=== PATIENT | male | born 1950 | race Caucasian/White ===

== ENCOUNTER 2017-08-08 17:11 | Emergency (ER) | payer MEDICARE ==
[2017-08-08] MEDS ORDERED: ACETAMINOPHEN 325 MG TABLET PO ONE (17:19)
[2017-08-08] MEDS: NORMAL SALINE 1000 ML 1,000 ML IV PRN ×2 (17:48→19:04)
--- NOTE | 2017-08-08 17:54 | ER Document Report ---
ED General - General Chief Complaint: Insect Bite Stated Complaint: POSSIBLE BUG BITES Time Seen by Provider: 08/08/17 17:17 Notes: The patient is a 66-year-old male who presents by EMS after he was found outside on top of an ant mound. The patient says he usually uses an electric wheelchair when he goes outside, but he thinks he fell out of it and landed on the ant mound. He does not know how long he was outside, but he was last seen by his family member at 8 AM. He was given 50 mg of Benadryl by EMS and the ants were hosed off prior to arrival. He was also found to be febrile 101.2 by EMS. Patient also having left upper arm pain where he was laying on it all day. Patient denies difficulty swallowing, chest pain, shortness of breath, headache, focal weakness, numbness, tingling, difficulty swallowing, nausea, vomiting, abdominal pain or back pain. - Related Data Allergies/Adverse Reactions: ampicillin Allergy (Verified 08/08/17 17:55) Past Medical History - General Information source: Patient - Social History Smoking Status: Unknown if Ever Smoked Family History: Reviewed & Not Pertinent Review of Systems - Review of Systems Notes: REVIEW OF SYSTEMS: CONSTITUTIONAL: -fevers, -chills EENT: -eye pain, -difficulty swallowing, -nasal congestion CARDIOVASCULAR: -chest pain, -syncope. RESPIRATORY: -cough, -SOB GASTROINTESTINAL: -abdominal pain, -nausea, -vomiting, -diarrhea GENITOURINARY: -dysuria, -hematuria MUSCULOSKELETAL: +left upper arm pain, -back pain, -neck pain SKIN: +pruritic rash HEMATOLOGIC: -easy bruising or bleeding. LYMPHATIC: -swollen, enlarged glands. NEUROLOGICAL: -altered mental status or loss of consciousness, -headache, - neurologic symptoms PSYCHIATRIC: -anxiety, +depression. ALL OTHER SYSTEMS REVIEWED AND NEGATIVE. Physical Exam - Vital signs Vitals: Temp Resp Pulse Ox 101.0 F H 11 L 96 08/08/17 17:33 08/08/17 17:33 08/08/17 17:33 - Notes Notes: PHYSICAL EXAMINATION: GENERAL: Well-appearing, well-nourished and in no acute distress. HEAD: Atraumatic, normocephalic. EYES: Pupils equal round and reactive to light, extraocular movements intact, sclera anicteric, conjunctiva are normal. ENT: nares patent, oropharynx clear without exudates. Moist mucous membranes. NECK: Normal range of motion, supple without lymphadenopathy LUNGS: Breath sounds clear to auscultation bilaterally and equal. No wheezes rales or rhonchi. HEART: Regular rhythm, tachycardia ABDOMEN: Soft, nontender, normoactive bowel sounds. No guarding, no rebound. No masses appreciated. EXTREMITIES: Tenderness over left upper arm. Normal range of motion, no pitting or edema. No cyanosis. NEUROLOGICAL: Cranial nerves grossly intact. Normal speech, normal gait. Normal sensory and motor exams. PSYCH: Tearful, depressed mood SKIN: Diffuse pruritic urticarial lesions with red ants in his axilla. Course - Re-evaluation Re-evalutation: Patient has no signs of anaphylaxis at this time. He is mildly tachycardic and febrile, but no signs of infection. His mildly elevated temperature is most likely related to his prolonged sun exposure over the past 8 hours. Rest of blood work is unremarkable. 08/08/17 18:00 Daughter and arrived to the ER and provided additional information. Patient is seeing [facility] for an unknown disorder that is causing him decreased ability to walk. He has had extensive workup, but he continues to lose mobility over the past 15 months. Patient is increasingly depressed and said he would rather than live without the ability to walk. The family members are tearful and said that the patient is having increased sadness and hopelessness. A few months ago he was on BuSpar, but it caused anaphylactic reaction, so he is not on any antidepressants at this time. The daughter and think that this was a suicide attempt because his wheelchair was very far from the ant mound. Patient does agree that he is having increased depression about his illness and agrees to stay to speak to mental health in the morning. - Vital Signs Vital signs: Temp Pulse Resp BP Pulse Ox 98.3 F 20 149/77 H 99 08/08/17 19:08 08/08/17 20:01 08/08/17 20:01 08/08/17 20:01 - Laboratory Result Diagrams: 08/08/17 17:47 08/08/17 17:47 Laboratory results interpreted by me: 08/08/17 08/08/17 08/08/17 17:47 17:47 17:47 RDW 14.2 H Seg Neutrophils % 82.2 H Lymphocytes % 9.8 L Absolute Neutrophils 8.4 H Glucose 262 H Salicylates < 1.0 L Acetaminophen < 10 L - Diagnostic Test Radiology reviewed: Image reviewed, Reports reviewed Radiology results interpreted by me: Left humerus x-ray: NAD CT Head: NAD CXR: Cardiomegaly. There is blunting of the left costophrenic angle which could represent pleural reaction or a small left pleural effusion. Other findings as noted above. Discharge - Discharge Clinical Impression: [place] Fire ant bite Qualifiers: Encounter type: initial encounter Injury intent: intentional self-harm Qualified Code(s): T63.422A - Toxic effect of venom of ants, intentional self- harm, initial encounter Depression Qualifiers: Depression Type: unspecified Qualified Code(s): F32.9 - Major depressive disorder, single episode, unspecified Contusion of left upper arm Qualifiers: Encounter type: initial encounter Qualified Code(s): S40.022A - Contusion of left upper arm, initial encounter Condition: Stable Additional Instructions: ACUTE ALLERGIC REACTION: Your symptoms are due to an allergic reaction. Allergy can cause hives, swelling of the hands, feet, and face, hoarseness, and difficulty swallowing or breathing. It may be due to exposure to medication, animal dander, foods, infection, or insect bites. Medication is a common cause, even when prior use of this same medication caused no problems. Acute treatment may include adrenalin and antihistamines. Usually, the specific allergic agent can't be identified unless repeated episodes occur. Home treatment includes the following: (1) Stop any suspicious medications. This will be discussed with you. (2) Oral antihistamines for the next four to five days. Example, diphenhydramine (Benadryl) every four hours. (3) You may also use cimetidine (Tagamet), ranitidine (Zantac), or famotidine ( Pepcid) every four hours if diphenhydramine is not controlling itching and hives. (4) Avoid aspirin until the hives completely disappear. (5) Avoid hot baths or showers until the hives are completely gone. Call the doctor if faintness, difficulty swallowing, tightness in the chest , or wheezing occurs. ANTIHISTAMINES: An antihistamine has been given and/or prescribed to control your symptoms. Antihistamines are used for many reasons, including itching, watering eyes, runny nose, allergic swelling, hives, and insect stings. Antihistamines may cause drowsiness, especially with the first dose. Do not operate machinery or drive while under the effects of the medication. Other common side effects include dry mouth and eyes. In older persons, antihistamines can occasionally cause urinary retention, constipation, and trouble focusing the eyes. Do not combine the medication with alcohol, or with any other medication without talking to your doctor. USE OF DIPHENHYDRAMINE: The use of diphenhydramine (Benadryl) has been recommended to control allergic symptoms. The 25 mg strength is available over- the-counter, as well as the elixir. This antihistamine is used for many symptoms. It's useful for itching, watering eyes and nose, allergic swelling, hives, and insect stings. The medication can be repeated four times daily. Age Elixir (12.5 mg/tsp) 25 mg pill 2-3 yr 1/2 tsp 4-8 yr 1 tsp 9-14 yr 2 tsp one tab adult 1-2 tabs Antihistamines may cause drowsiness, especially with the first dose. Do not operate machinery or drive while under the effects of the medication. Do not combine the medication with alcohol, or with any other medication without talking to your doctor. FOLLOW-UP CARE: If you have been referred to a physician for follow-up care, call the physician s office for an appointment as you were instructed or within the next two days. If you experience worsening or a significant change in your symptoms, notify the physician immediately or return to the Emergency Department at any time for re-evaluation. Contusion Your injury has resulted in a contusion -- a crushing of the deep tissues. No injury to important structures was detected during the physician's exam. Contusions vary in the amount of pain they cause, and in the length of time required for healing. Typically, the area will become bruised, and will remain painful to touch for two or three weeks. However, most patients are back to working and playing within a few days. After the initial period of rest and cold-packs, your symptoms (together with the doctor's recommendations) will determine how rapidly you can get back to full activity. Usually this means "do what feels okay, but don't do things that hurt." If re-examination was recommended, it's important to follow up as instructed. Call the doctor or return any time if pain increases, if swelling becomes severe, if you develop numbness or weakness in an injured extremity, or if any other alarming symptoms occur. Forms: Elevated Blood Pressure
[2017-08-08 17:58] LABS: ABSOLUTE BASOPHILS # (AUTO) 0.1 10^3/uL (0.0-0.2); ABSOLUTE EOSINOPHILS # (AUTO) 0.1 10^3/uL (0.0-0.6); ABSOLUTE MONOCYTES (AUTO) 0.7 10^3/uL (0.1-1.4); ABSOLUTE NEUT (AUTO) 8.4 10^3/uL (1.7-8.2); BASOPHILS % (AUTO) 0.8 % (0-2); EOSINOPHILS % (AUTO) 0.8 % (0-6); HEMATOCRIT 46.4 % (37.9-51.0); HEMOGLOBIN 15.9 g/dL (13.5-17.0); LYMPHOCYTES % (AUTO) 9.8 % (13-45); MEAN CORPUSCULAR HEMOGLOBIN 29.8 pg (27.0-33.4); MEAN CORPUSCULAR HGB CONC 34.3 g/dL (32.0-36.0); MEAN CORPUSCULAR VOLUME 87 fl (80-97); MONOCYTES % (AUTO) 6.4 % (3-13); PLATELET COUNT 212 10^3/uL (150-450); RED BLOOD COUNT 5.34 10^6/uL (4.35-5.55); RED CELL DISTRIBUTION WIDTH 14.2 % (11.5-14.0); SEGMENTED NEUTROPHILS % (AUTO) 82.2 % (42-78); TOTAL CELLS COUNTED % (AUTO) 100 %; WHITE BLOOD COUNT 10.2 10^3/uL (4.0-10.5)
[2017-08-08 18:11] LABS: ALANINE AMINOTRANSFERASE 48 U/L (21-72); ALBUMIN 3.7 g/dL (3.5-5.0); ALKALINE PHOSPHATASE 58 U/L (38-126); ANION GAP 16 (5-19); ASPARTATE AMINO TRANSFERASE 25 U/L (17-59); BILIRUBIN,DIRECT 0.4 mg/dL (0.0-0.4); BILIRUBIN,TOTAL 0.8 mg/dL (0.2-1.3); BLOOD UREA NITROGEN 15 mg/dL (7-20); CALCIUM 9.2 mg/dL (8.4-10.2); CARBON DIOXIDE 25 mmol/L (22-30); CHLORIDE 102 mmol/L (98-107); CREATINE KINASE 67 U/L (55-170); GLUCOSE 262 mg/dL (75-110); POTASSIUM 3.7 mmol/L (3.6-5.0); SODIUM 142.7 mmol/L (137-145); TOTAL PROTEIN 6.3 g/dL (6.3-8.2)
--- NOTE | 2017-08-08 18:46 | RADIOLOGY REPORT (SQ) ---
EXAM DESCRIPTION: HUMERUS LEFT COMPLETED DATE/TIME: 08/08/2017 6:20 pm REASON FOR STUDY: fall, left humerus pain COMPARISON: None. NUMBER OF VIEWS: Two views. TECHNIQUE: Two radiographic images were acquired of the left humerus to include elbow and shoulder i n at least one projection. LIMITATIONS: None. FINDINGS: MINERALIZATION: Normal. BONES: No acute fracture or dislocation. No worrisome bone lesions. SOFT TISSUES: No obvious swelling or foreign body. OTHER: No other significant finding. IMPRESSION: NEGATIVE STUDY OF THE LEFT HUMERUS. NO RADIOGRAPHIC EVIDENCE OF ACUTE INJURY. TECHNICAL DOCUMENTATION: JOB ID: [id number] [employer]- All Rights Reserved Reading location - IP/workstation name: [email or web address] [id number]
--- NOTE | 2017-08-08 18:49 | RADIOLOGY REPORT (SQ) ---
EXAM DESCRIPTION: CHEST SINGLE VIEW COMPLETED DATE/TIME: 08/08/2017 6:20 pm REASON FOR STUDY: cough COMPARISON: None. EXAM PARAMETERS: NUMBER OF VIEWS: One view. TECHNIQUE: Single frontal radiographic view of the chest acquired. RADIATION DOSE: NA LIMITATIONS: None. FINDINGS: LUNGS AND PLEURA: No acute consolidations are identified. There is blunting of the left c ostophrenic angle which could represent pleural reaction or small left pleural effusion MEDIASTINUM AND HILAR STRUCTURES: No masses. Contour normal. HEART AND VASCULAR STRUCTURES: Cardiac silhouette is enlarged BONES: No acute findings. HARDWARE: Patient is status post median sternotomy. OTHER: No other significant finding. IMPRESSION: Cardiomegaly. There is blunting of the left costophrenic angle which could represent pl eural reaction or a small left pleural effusion. Other findings as noted above TECHNICAL DOCUMENTATION: JOB ID: [id number] [employer]- All Rights Reserved Reading location - IP/workstation name: [email or web address]
--- NOTE | 2017-08-08 18:56 | RADIOLOGY REPORT (SQ) ---
EXAM DESCRIPTION: CT HEAD WITHOUT COMPLETED DATE/TIME: 08/08/2017 6:15 pm REASON FOR STUDY: fall, head injury COMPARISON: None. TECHNIQUE: Axial images acquired through the brain without intravenous contrast. Images reviewed wi th bone, brain and subdural windows. Images stored on PACS. All CT scanners at this facility use dose modulation, iterative reconstruction, and/or weight based d osing when appropriate to reduce radiation dose to as low as reasonably achievable (ALARA). [facility]: Dose Right [facility]: CareDose [facility]: Dose Right [facility]: Teradose 4D [facility]: [employer] RADIATION DOSE: mGy. LIMITATIONS: None. FINDINGS: VENTRICLES: Prominent. CEREBRUM: No masses. No hemorrhage. No midline shift. Areas of low density in the white matter mos t likely due to chronic micro-vascular ischemic change. No evidence for acute infarction. CEREBELLUM: No masses. No hemorrhage. No alteration of density. No evidence for acute infarction. EXTRAAXIAL SPACES: Mild age-related involutional change. No fluid collections. No masses. ORBITS AND GLOBE: No intra- or extraconal masses. Normal contour of globe without masses. CALVARIUM: No fracture. PARANASAL SINUSES: No fluid or mucosal thickening. SOFT TISSUES: No mass or hematoma. OTHER: No other significant finding. IMPRESSION: MILD CHRONIC CHANGES OF ATROPHY AND MICROVASCULAR ISCHEMIA. NO ACUTE PROCESS. EVIDENCE OF ACUTE STROKE: No TECHNICAL DOCUMENTATION: JOB ID: [id number] Quality ID # [id number]: Final reports with documentation of one or more dose reduction techniques (e.g., Au tomated exposure control, adjustment of the mA and/or kV according to patient size, use of iterative reconstruction technique) 2010 [employer]- All Rights Reserved Reading location - IP/workstation name: [email or web address]
[2017-08-08 19:22] LABS: VENOUS BLOOD BASE EXCESS 0.6 mmol/L; VENOUS BLOOD HCO3 27.5 mmol/L (20-32); VENOUS BLOOD PCO2 52.2 mmHg (35-63); VENOUS BLOOD PH 7.34 (7.30-7.42)
[2017-08-08] MEDS ORDERED: NAPROXEN 250 MG TABLET PO ONE (20:15)
[2017-08-08] MEDS ORDERED: ACETAMINOPHEN 325 MG TABLET PO PRN (20:32)
[2017-08-08 20:53] LABS: ACETAMINOPHEN < 10 ug/mL (10-30); ALCOHOL < 10 mg/dL (NONE DETECTED)
[2017-08-08 20:54] LABS: SALICYLATE < 1.0 mg/dL (2.0-20.0)
--- NOTE | 2017-08-08 21:17 | EKG REPORT ---
SEVERITY:- ABNORMAL ECG - SINUS TACHYCARDIA INFERIOR INFARCT, AGE INDETERMINATE BORDERLINE R WAVE PROGRESSION, ANTERIOR LEADS PROLONGED QT INTERVAL : Confirmed by: Yumiko Calderón 08-Aug-2017 21:16:57
[2017-08-08] MEDS ORDERED: NITROGLYCERIN 0.4 MG/TAB 25 TAB/BOTTLE SL PRN (21:30)
[2017-08-08] MEDS: METOPROLOL TARTRATE 50 MG TABLET PO SCH (22:16)
[2017-08-09 06:52] LABS: URINE AMPHETAMINES SCREEN NEGATIVE; URINE BARBITURATES SCREEN NEGATIVE; URINE BENZODIAZEPINES SCREEN NEGATIVE; URINE COCAINE SCREEN NEGATIVE; URINE MARIJUANA (THC) SCREEN NEGATIVE; URINE METHADONE SCREEN NEGATIVE; URINE PHENCYCLIDINE SCREEN NEGATIVE
[2017-08-09] MEDS ORDERED: INSULIN GLARGINE,HUM.REC.ANLOG 300 UNIT/3 ML INSULN.PEN SUBCUT SCH ×2 (08:00→18:00)
[2017-08-09] MEDS: NAPROXEN 250 MG TABLET PO SCH ×2 (09:29→18:13)
[2017-08-09] MEDS: METOPROLOL TARTRATE 50 MG TABLET PO SCH ×2 (09:32→22:40)
[2017-08-09] MEDS ORDERED: CHOLECALCIFEROL (D3) 1,000 UNIT TABLET PO SCH (10:00)
[2017-08-09] MEDS ORDERED: ASPIRIN 81 MG TABLET, ENT COATED PO SCH (10:00)
[2017-08-09] MEDS ORDERED: GLIMEPIRIDE 4 MG TABLET PO SCH (10:00)
[2017-08-09] MEDS ORDERED: LISINOPRIL 10 MG TABLET PO SCH (10:00)
[2017-08-09] MEDS ORDERED: (PENDING PHARMACY ID) (Multivit-Min/Iron Fum/Folic Ac [Multi-Vitamin-Minerals Tablet] 1 TA PO SCH (10:00)
[2017-08-09] MEDS ORDERED: (PENDING PHARMACY ID) (Folic Acid [Folic Acid] 0.4 MG) PO SCH (10:00)
[2017-08-09] MEDS ORDERED: (PENDING PHARMACY ID) (Cholecalciferol (Vitamin D3) [Vitamin D3] 5,000 UNIT) PO SCH (10:00)
[2017-08-09] MEDS ORDERED: INSULIN GLARGINE,HUM.REC.ANLOG 1,000 UNIT/10 ML UNIT SUBCUT SCH ×2 (10:00→22:00)
[2017-08-09] MEDS ORDERED: (PENDING PHARMACY ID) (Lisinopril/Hydrochlorothiazide [Lisinopril-Hctz 20-25 Mg Tab] 1 TAB PO SCH (10:00)
[2017-08-09] MEDS ORDERED: HYDROCHLOROTHIAZIDE 25 MG TABLET PO SCH (10:00)
[2017-08-09] MEDS ORDERED: MULTIVITAMIN TABLET PO SCH (10:00)
[2017-08-09] MEDS ORDERED: DIVALPROEX SODIUM 125 MG CAP.SPRINK PO SCH ×2 (10:45→22:00)
[2017-08-09] MEDS ORDERED: DIVALPROEX SODIUM 125 MG CAP.SPRINK PO ONE (11:30)
--- NOTE | 2017-08-09 11:42 | ER Document Report ---
Doctor's Note Notes: 08/09/17 11:41 66-year-old male brought in by EMS after the patient was found on top of an ant mound with a slightly increased temperature. Patient supposedly has a history of dementia and lives with his . Patient has had a progressive neurologic disorder of unknown etiology followed at [facility] causing some lower extremity weakness. Family is concerned about the patient having suicidal ideations with possibly this being an attempt given that the patient was found very far from his wheelchair. Labs including a lactic acid and a CT scan of the head and chest were all ordered and unremarkable. The psychology team has seen and evaluated the patient and attempting to start the patient on medications. I do not see a urine analysis ordered so I will send a catheterized urine analysis and urine culture. Vital signs as recorded today.
[2017-08-09 12:53] LABS: APPEARANCE,URINE CLEAR; BILIRUBIN,URINE NEGATIVE (NEGATIVE); COLOR,URINE YELLOW; GLUCOSE, URINE >=500 mg/dL (NEGATIVE); KETONES,URINE NEGATIVE (NEGATIVE); LEUKOCYTE ESTERASE,URINE NEGATIVE (NEGATIVE); NITRITE,URINE NEGATIVE (NEGATIVE); PROTEIN,URINE 30 mg/dL (NEGATIVE); URINE SPECIFIC GRAVITY 1.027; UROBILINOGEN,URINE NEGATIVE mg/dL (<2.0)
--- NOTE | 2017-08-09 16:17 | PSYCHOLOGICAL NOTE ---
Psych Note - Psych Note Psych Note: Reason for consult: Depression, SI, AMS Contact Permissions: and daughters at bedside Patient is a 66 year old male who presented to the ED last evening via EMS after being found lying on a fire ant mound unsure of how long he had been there with dehydration. A psychiatric consult was ordered after family informed medical staff patient has had mobility issues for the last 16 months with increased depression (frequent crying) and SI (saying he would rather then not be able to walk again, give me a bullet). Patient reported not believing doctors at [place] about his brain shrinking. He noted frustration with just wanting to know what is going on. he admitted to SI (saying would rather than not walk again, saying give me a bullet). He admitted to having firearms and ammunition in the home () and never taking action. Patient was alert and oriented to person, place and situation. Mood was depressed with congruent affect as evidenced by being tearful. He denied current SI/HI, denied history of either, admitted to making comments about not wanting to live or just give me a bullet but was adamant he "is too chicken to actually do anything and couldn't do that to his family." He did not appear to be responding to internal stimuli as evidenced by fair eye contact, answering questions appropriately when addressed and staying on topic. Thought processes were slower but linear. Conversational speech was within normal limits for tone and prosody and at times slurred (more like strung together). Intellectual abilities are estimated to be average. Insight, judgment and impulse control were fair as evidenced by wanting to have answers to why he is the way he is. He stated he had a sever allergic reaction to Buspar ( noted this turned him off of all medications). was at bedside during initial evaluation and patient gave verbal consent to speak freely in front of her and keep her informed. She identified 16 months ago patient got out of bed to go to the restroom, fell, his left leg and arm were not functional as they had been and family thought he had a stroke. She identified he sees Dr. Carson and a PA at [facility]. She stated he has had several Head MRIs the most recent was June 2017 which resulted in the doctors saying patient had significant brain shrinkage." She also stated the PA who informed of the results conducted a test where they asked knowledge questions and patient had to draw which resulted in patient "scoring a 14 which the PA said was low." She identified when they were early on her father killed himself via shooting self and patient's sister killed herself via overdose (not far apart from each other). She stated he has mentioned he "feels like a burden." She reported he frequently cries and laughs at inappropriate times. She described him as a "jokester" but lately it is difficult to tell when he is joking. She noted the mobility issues are life changing because he was the provider and bread winner and now she is doing the working. She stated it was odd patient had gone outside yesterday (she is also life care planner to her mother and they had gone to a doctor appointment) since he doesn't ever want to go out (he maintained he has before). She stated she takes patient to [facility] where they want him to use walker more versus his lift and wheelchair. She stated a year ago patient's doctor mentioned likely beginning stages of dementia. She noted difficulty walking (specifically left foot) prior to 16 months ago and memory issues. She noted he will refuse medications saying "what is the point they aren 't working." She acknowledged patient is diabetic (multiple medications for this at home), has heart issues (heart attack at age 40, went in for 7 Bypass and had 5 Bypass, has 2 stents and current blockage now), incontinence issues and IBS with Diarrhea. Head CT dated 08/08/17 completed secondary to fall/head injury had the following findings: prominent ventricles, areas of low density in the white matter most likely due to chronic micro-vascular ischemic change and mild age related involutional change. Overall findings were: Mild chronic changes of atrophy and micro-vascular ischemic, no acute process. This language is suggestive of neuro-degenerative processes as seen in dementia which is chronic and what is of concern. 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 Behaviors and symptoms are likely related to dementia processes (there is likely some depression as result of lifestyle change). Recommendation to hold patient overnight given added medication to address mood (want to ensure tolerance since had anaphylactic reaction to Buspar). If medication tolerated well will plan to discharge tomorrow with followup with therapy and psychiatric for medication management, as well as care coordination with neurologist. Consulted with Dr. Anderson regarding the management and care of patient. Medication recommendations made by the psychiatric medical provider, Dr. Roel WEBBER, include: Depakote Sprinkles 500MG twice a day for mood stabilization *Note will need to monitor blood sugar and possibly adjust diabetic medications as needed Clonidine 0.1MG at night for sleep and anxiety
[2017-08-09] MEDS ORDERED: DEXTROSE 50%-WATER 25 GM/50 ML DISP.SYRIN IV PRN ×2 (21:20)
[2017-08-09] MEDS ORDERED: DEXTROSE 40% GEL 15 GM TUBE PO PRN ×2 (21:20)
[2017-08-09] MEDS ORDERED: GLUCAGON,HUMAN RECOMB 1 MG INJ IM PRN (21:20)
[2017-08-09] MEDS ORDERED: CLONIDINE HCL 0.1 MG TABLET PO SCH (22:00)
[2017-08-09] MEDS: INSULIN LISPRO 100 UNIT/ML 3 ML VIAL SUBCUT PRN (22:19)
[2017-08-10] MEDS: INSULIN LISPRO 100 UNIT/ML 3 ML VIAL SUBCUT PRN (06:47)
[2017-08-10] MEDS: NAPROXEN 250 MG TABLET PO SCH (08:12)
--- NOTE | 2017-08-10 08:53 | ER Document Report ---
Doctor's Note Notes: 08/10/17 08:52 Rounds: Chart reviewed and patient interviewed. Patient is being evaluated for mental status changes. He has a history of dementia for which he sees a local neurologist. Vital signs of all been normal. Lab studies have all been normal as well. Patient wishes to go home and his wishes to take him home. He appears to be medically stable for transfer or discharge. Becka Tate MD 08/10/17 09:13 Patient also has a blister on the left antecubital fossa area from laying in the sun too long. It does not show any evidence of infection. Recommended cleansing with mild soap daily and applying bacitracin ointment after that.
[2017-08-10 09:10] VITALS: BP 135/60
[2017-08-10] MEDS ORDERED: FOLIC ACID 1 MG TABLET PO SCH (10:00)
--- NOTE | 2017-08-11 13:45 | PSYCHOLOGICAL NOTE ---
Psych Note - Psych Note Psych Note: Reason for consult: Depression, SI, AMS Contact Permissions: and daughters at bedside Patient is a 66 year old male who presented to the ED last evening via EMS after being found lying on a fire ant mound unsure of how long he had been there with dehydration. Conducted checking with patient Patient disclosed agitation and not being able to control the TV and feeling as if he has been transferred to a psychiatric unit without his knowledge. Patient states that he agreed to stay in the emergency department to stabilized on medication but feels that he has been "put away." Patient's arrived at bedside and is requesting to take the patient home. She states that the patient has difficulty in some situations and she finds that his best to remove him from those situations. She discloses no concern about bringing the patient home with her. She disclosed that they have already started the process of installing cameras so she can continue monitoring the patient even when she is not at home. She reports that she does have to work still 4 days a week however it is only minutes from the home and if she can monitor him through video she can be home within moments. Clinician in discussed alternate safety measures such as emergency call equipment/jewelry. Medication recommendations made by the psychiatric medical provider, Dr. 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 Behaviors and symptoms are likely related to dementia processes (there is likely some depression as result of lifestyle change). Patient is recommended to followup with therapy and psychiatric for medication management, as well as care coordination with neurologist. Consulted with Dr. Anderson regarding the management and care of patient.
== END 2017-08-10 09:10 | disposition home or self-care (01) ==
LOC: ER 17:11
DX: S40.022A Contusion of left upper arm, initial encounter (principal); F32.9 Major depressive disorder, single episode, unspecified; L55.9 Sunburn, unspecified; T63.421A Toxic effect of venom of ants, accidental (unintentional), initial encounter; Y92.007 Garden or yard of unspecified non-institutional (private) residence as the place of occurrence of the external cause; E86.0 Dehydration; G31.84 Mild cognitive impairment of uncertain or unknown etiology
CPT/HCPCS: 93005; 99285; 96360; 96361; 36415; 87040; 87086; 82962; 80307 ×4; 82550; 85025; 80053; 81001; 82803; 83605; 71045; 73060; 70450; 93010; A9270 ×15; J3490; J7030; J1815

== ENCOUNTER 2019-01-29 18:03 | Emergency (ER) | payer MEDICARE ==
--- NOTE | 2019-01-29 18:13 | ER Document Report ---
ED Medical Screen (RME) - General Chief Complaint: Weakness Stated Complaint: RIDE SIDE FEELS "WEAK" Time Seen by Provider: 01/29/19 18:08 Mode of Arrival: Wheelchair Information source: Patient Notes: 68-year-old male presented to ED for complaint of right-sided weakness. [place] patient states he had a left-sided stroke about 4 years ago and had left-sided weakness now he has right-sided weakness since fell Monday. states she does not know of the weakness his fell out of the orbit he fell because of the weakness. She states EMS did come and check him out but he did not come in to the emergency room Monday night. She states he is continuing to be more weak on the right side. said there is some confusion and disorientation. says he does have a little bit of dementia. He does have a cardiac history and diabetes. She states he is incontinent and he has had a little bit of blood in his urine lately. I have greeted and performed a rapid initial assessment of this patient. A comprehensive ED assessment and evaluation of the patient, analysis of test results and completion of medical decision making process will be conducted by an additional ED providers. TRAVEL OUTSIDE OF THE [place] IN LAST 30 DAYS: No - Related Data Allergies/Adverse Reactions: buspirone [From BuSpar] Allergy (Severe, Verified 08/10/17 00:49) Anaphylaxis ampicillin Allergy (Verified 08/08/17 17:55) Past Medical History - Past Medical History Cardiac Medical History: Reports: Hx Hypercholesterolemia, Hx Hypertension Endocrine Medical History: Reports: Hx Diabetes Mellitus Type 1 Renal/ Medical History: Denies: Hx Peritoneal Dialysis Past Surgical History: Reports: Hx Cardiac Surgery
[2019-01-29 19:13] LABS: ABSOLUTE BASOPHILS # (AUTO) 0.1 10^3/uL (0.0-0.2); ABSOLUTE EOSINOPHILS # (AUTO) 0.2 10^3/uL (0.0-0.6); ABSOLUTE MONOCYTES (AUTO) 0.7 10^3/uL (0.1-1.4); RED BLOOD COUNT 5.37 10^6/uL (4.35-5.55); TOTAL CELLS COUNTED % (AUTO) 100 %
--- NOTE | 2019-01-29 19:18 | ER Document Report ---
ED General - General Chief Complaint: Weakness Stated Complaint: RIDE SIDE FEELS "WEAK" Time Seen by Provider: 01/29/19 18:08 Mode of Arrival: Wheelchair Notes: 68-year-old male with coronary artery disease and history of 5 vessel CABG and stents, insulin-dependent diabetes mellitus, CVA with left-sided residual weakne ss, incontinence presents to the emergency department with chief complaint of right-sided weakness. Patient is mostly wheelchair-bound but does ambulate with a walker short distances. This past Monday he was transitioning with his walker when his heard a thud and found that he had fallen in the bathroom. She saw him on his left side. Since the incident patient has not been able to walk. Denies any slurred speech, per triage note stated there was some confusion and disorientation, no dizziness, no acute shortness of breath or chest pain, no diaphoresis, no nausea or vomiting. Of note, stated that patient did have hematuria and patient does have a history of 3 urologic procedures. TRAVEL OUTSIDE OF THE [place] IN LAST 30 DAYS: No - Related Data Allergies/Adverse Reactions: buspirone [From BuSpar] Allergy (Severe, Verified 08/10/17 00:49) Anaphylaxis ampicillin Allergy (Verified 08/08/17 17:55) Past Medical History - General Information source: Patient - Social History Smoking Status: Never Smoker Frequency of alcohol use: None Drug Abuse: None Family History: Reviewed & Not Pertinent Patient has suicidal ideation: No Patient has homicidal ideation: No - Past Medical History Cardiac Medical History: Reports: Hx Hypercholesterolemia, Hx Hypertension Endocrine Medical History: Reports: Hx Diabetes Mellitus Type 1, Hx Diabetes Mellitus Type 2 Renal/ Medical History: Denies: Hx Peritoneal Dialysis Past Surgical History: Reports: Hx Cardiac Surgery - quintuple bypass, stent x2 Review of Systems - Review of Systems Constitutional: See HPI EENT: No symptoms reported Cardiovascular: See HPI Respiratory: See HPI Gastrointestinal: See HPI Genitourinary: See HPI Male Genitourinary: No symptoms reported Musculoskeletal: No symptoms reported Skin: No symptoms reported Hematologic/Lymphatic: No symptoms reported Neurological/Psychological: No symptoms reported Physical Exam - Vital signs Vitals: Temp Pulse Resp BP Pulse Ox 99.1 F 83 22 H 151/79 H 95 01/29/19 18:08 01/29/19 18:08 01/29/19 18:08 01/29/19 18:08 01/29/19 18:08 - Notes Notes: PHYSICAL EXAMINATION: Reviewed vital signs and charting by RN GENERAL: Alert, interacts well. No acute distress. HEAD: Normocephalic, atraumatic. EYES: Pupils equal and round. Extraocular movements intact. ENT: Oral mucosa moist, tongue midline. NECK: Full range of motion. Trachea midline. LUNGS: Clear to auscultation bilaterally, no wheezes, rales, or rhonchi. No respiratory distress. HEART: Regular rate and rhythm. No murmur ABDOMEN: soft, non-tender. No distention. Bowel sounds present EXTREMITIES: Moves all 4 extremities spontaneously. No edema, No cyanosis. NEURO: A &O X 3, normal speech, PERRL, EOMI, SILT, follows commands in all 4 extremities, no gross abnormalities of cranial nerves, no focal neuro deficits, no pronator drift, [id number] testing normal, voip engineer strength 5/5 bilateral, 5/5 strength in both proximal and distal upper and lower extremities PSYCH: Normal affect, normal mood. SKIN: Warm, dry, normal turgor. No rashes or lesions noted. Course - Re-evaluation Re-evalutation: 01/29/19 19:18 Patient presents with right-sided weakness temporally related to a fall. Patient has a normal neurologic exam and normal strength in the bed. Patient is unable to ambulate. I am going to obtain a right hip. 01/29/19 23:43 There has been a significant delay with radiology reads due to his ability to push images to remote site. The right hip x-ray still has not been read so I ordered a CT right lower extremity without contrast to assess for occult frac ture. The CT head was faxed over and was negative for any acute intracranial bleed or evidence of ischemic stroke. Lab work is overall unremarkable. There is no leukocytosis. Patient absolutely refused to provide a urine sample through straight catheterization. I sat at the bedside and discussed with him at length that there is a chance he has a urinary tract infection which could be causing the hematuria he is complaining of but he is adamantly opposed to it. The patient's is exasperated at the bedside. Once the CT right lower extremity is read a disposition will be made. 11/06/19 00:05 Bedside handoff completed with John Wailuku, PA. He has assumed care of the patient. - Vital Signs Vital signs: Temp Pulse Resp BP Pulse Ox 99.1 F 83 22 H 151/79 H 95 01/29/19 18:08 01/29/19 18:08 01/29/19 18:08 01/29/19 18:08 01/29/19 18:08 - Laboratory Result Diagrams: 01/29/19 18:20 01/29/19 18:20 Laboratory results interpreted by me: 01/29/19 01/29/19 18:20 18:20 RDW 14.9 H BUN 23 H Glucose 350 H Discharge - Discharge Clinical Impression: Weakness of right side of body, Unable to ambulate Condition: Stable Disposition: HOME, SELF-CARE Additional Instructions: You were seen in the emergency department this evening weakness on the left side happened after a fall on Monday. I am very sorry for the long wait you had this evening. Your work-up was overall reassuring, but because you did not want to give us a urine sample we do not know for sure if there is an infectious source causing your weakness. The CT of your right leg was negative for an occult fracture and your lab work was all reassuring. Please follow-up with your primary doctor in the next 24 to 48 hours. Please return to the emergency department if you do develop complete paralysis of your right side, slurred speech, acute mental status changes, or you have any other concerning symptoms.
[2019-01-29] MEDS ORDERED: IPRATROPIUM/ALBUTEROL 0.5-2.5 MG/3 ML AMPUL NEB ONE (19:19)
[2019-01-29 19:21] LABS: ABSOLUTE LYMPHOCYTES (AUTO) 2.5 10^3/uL (0.5-4.7); ABSOLUTE NEUT (AUTO) 4.6 10^3/uL (1.7-8.2); BASOPHILS % (AUTO) 1.2 % (0-2); EOSINOPHILS % (AUTO) 2.6 % (0-6); HEMATOCRIT 46.3 % (37.9-51.0); HEMOGLOBIN 16.2 g/dL (13.5-17.0); LYMPHOCYTES % (AUTO) 30.7 % (13-45); MEAN CORPUSCULAR HEMOGLOBIN 30.1 pg (27.0-33.4); MEAN CORPUSCULAR HGB CONC 34.9 g/dL (32.0-36.0); MEAN CORPUSCULAR VOLUME 86 fl (80-97); MONOCYTES % (AUTO) 8.9 % (3-13); PLATELET COUNT 220 10^3/uL (150-450); RED CELL DISTRIBUTION WIDTH 14.9 % (11.5-14.0); SEGMENTED NEUTROPHILS % (AUTO) 56.6 % (42-78); WHITE BLOOD COUNT 8.2 10^3/uL (4.0-10.5)
[2019-01-29 19:51] LABS: ALBUMIN 4.1 g/dL (3.5-5.0); ALKALINE PHOSPHATASE 81 U/L (38-126); ANION GAP 12 (5-19); ASPARTATE AMINO TRANSFERASE 20 U/L (17-59); BILIRUBIN,DIRECT 0.1 mg/dL (0.0-0.4); BILIRUBIN,TOTAL 0.7 mg/dL (0.2-1.3); BLOOD UREA NITROGEN 23 mg/dL (7-20); CALCIUM 9.6 mg/dL (8.4-10.2); CARBON DIOXIDE 26 mmol/L (22-30); CHLORIDE 100 mmol/L (98-107); GLUCOSE 350 mg/dL (75-110); POTASSIUM 4.2 mmol/L (3.6-5.0); TOTAL PROTEIN 6.9 g/dL (6.3-8.2)
[2019-01-30 01:45] VITALS: BP 148/77
--- NOTE | 2019-01-30 07:57 | RADIOLOGY REPORT (SQ) ---
EXAM DESCRIPTION: CT HEAD WITHOUT INTRAVENOUS CONTRAST CLINICAL HISTORY: Right sided weakness. COMPARISON: CT 08/08/2017. TECHNIQUE: CT of the head was performed without intravenous contrast .This exam was performed according to our departmental dose-optimization program, which includes automated exposure control, adjustment of the mA and/or KV according to the patient's size and/or use of iterative reconstruction technique. FINDINGS: Moderate size ventricles mildly decreased since 08/08/2017. There is a new shunt introduced through the right frontal bone with the tip in the anterior third ventricle. There is no change in the prominence of the sylvian fissures and relative effacement of the sulci of the upper brain. Hypodensity in the medial aspects of both occipital lobes is unchanged in the more likely part of the artifact. Tiny hypodensity in the left bari unchanged since previous study. No obvious acute intra-axial or extra-axial lesions. Paranasal sinuses, mastoid air cells and bony calvarium are unremarkable. IMPRESSION: 1. Since the previous CT, a shunt has been introduced from the right side with good position tip in anterior third ventricle. 2. Ventricle size has mildly decreased since the preshunt CT. 3. Old left lacunar infarction in the left bari. Differential diagnosis with incidental normal variant CSF space. 4. No acute findings intracranially.
--- NOTE | 2019-01-30 07:57 | RADIOLOGY REPORT (SQ) ---
EXAM DESCRIPTION: XR HIP 2 OR MORE VIEWS COMPLETED DATE/TME: CLINICAL HISTORY: 68 years, Male, FALL, CAN'T AMBULATE COMPARISON: None. NUMBER OF VIEWS: Two TECHNIQUE: Two views of the right hip LIMITATIONS: None. FINDINGS: No acute fracture or dislocation. The hip and sacroiliac joints appear intact. The pubic symphysis is intact. No large soft tissue swelling. IMPRESSION: No acute fracture or dislocation. copyright 2010 [employer]- All Rights Reserved
--- NOTE | 2019-01-30 11:04 | RADIOLOGY REPORT (SQ) ---
EXAM DESCRIPTION: CT PELVIS WITHOUT IV CONTRAST COMPLETED DATE/TME: CLINICAL HISTORY: 68 years, Male, fall - cannot ambulate COMPARISON: None. TECHNIQUE: Axial CT images of the pelvis were obtained without contrast. Sagittal and coronal reformats were performed. DLP 1286 Images stored on PACS. All CT scanners at this facility use dose modulation, iterative reconstruction, and/or weight based dosing when appropriate to reduce radiation dose to as low as reasonably achievable (ALARA). [facility]: Dose Right [facility]: CareDose [facility]: Dose Right [facility]: Teradose 4D [facility]: [employer] LIMITATIONS: None. FINDINGS: There is no acute fracture or dislocation. The bilateral hip and sacroiliac joints are intact. The pubic symphysis is intact. No significant joint effusion. No large soft tissue swelling. No radiopaque foreign body. The visualized portions of the bowel are unremarkable. The urinary bladder is unremarkable. There are atherosclerotic tissues of the abdominal aorta and iliac branches. A peritoneal dialysis catheter is partially visualized in the pelvis. IMPRESSION: No acute fracture or dislocation. TECHNICAL DOCUMENTATION: Quality ID # [id number]: Final reports with documentation of one or more dose reduction techniques (e.g., Automated exposure control, adjustment of the mA and/or kV according to patient size, use of iterative reconstruction technique) copyright 2011 [employer]- All Rights Reserved
== END 2019-01-30 01:45 | disposition home or self-care (01) ==
LOC: ER 18:03
DX: R53.1 Weakness (principal); R26.2 Difficulty in walking, not elsewhere classified; W19.XXXA Unspecified fall, initial encounter; I25.10 Atherosclerotic heart disease of native coronary artery without angina pectoris; E11.9 Type 2 diabetes mellitus without complications; Z79.4 Long term (current) use of insulin; I10 Essential (primary) hypertension
CPT/HCPCS: 36415; 70450; 72192; 80053; 85025; 94640; 99285

== ENCOUNTER 2019-05-15 21:51 | Emergency (ER) | payer MEDICARE ==
[2019-05-15 22:46] LABS: ABSOLUTE BASOPHILS # (AUTO) 0.1 10^3/uL (0.0-0.2); ABSOLUTE EOSINOPHILS # (AUTO) 0.2 10^3/uL (0.0-0.6); ABSOLUTE MONOCYTES (AUTO) 0.6 10^3/uL (0.1-1.4); ABSOLUTE NEUT (AUTO) 5.4 10^3/uL (1.7-8.2); EOSINOPHILS % (AUTO) 1.9 % (0-6); HEMATOCRIT 46.6 % (37.9-51.0); HEMOGLOBIN 16.1 g/dL (13.5-17.0); LYMPHOCYTES % (AUTO) 24.3 % (13-45); MEAN CORPUSCULAR HGB CONC 34.4 g/dL (32.0-36.0); MEAN CORPUSCULAR VOLUME 87 fl (80-97); MONOCYTES % (AUTO) 7.3 % (3-13); PLATELET COUNT 189 10^3/uL (150-450); RED BLOOD COUNT 5.36 10^6/uL (4.35-5.55); RED CELL DISTRIBUTION WIDTH 13.9 % (11.5-14.0); SEGMENTED NEUTROPHILS % (AUTO) 65.5 % (42-78); TOTAL CELLS COUNTED % (AUTO) 100 %; WHITE BLOOD COUNT 8.2 10^3/uL (4.0-10.5)
[2019-05-15 22:50] LABS: ALBUMIN 3.3 g/dL (3.5-5.0); ALKALINE PHOSPHATASE 62 U/L (38-126); ANION GAP 7 (5-19); ASPARTATE AMINO TRANSFERASE 21 U/L (17-59); BILIRUBIN,DIRECT 0.2 mg/dL (0.0-0.4); BILIRUBIN,TOTAL 0.7 mg/dL (0.2-1.3); BLOOD UREA NITROGEN 14 mg/dL (7-20); CALCIUM 8.9 mg/dL (8.4-10.2); CARBON DIOXIDE 27 mmol/L (22-30); CHLORIDE 100 mmol/L (98-107); CREATINE KINASE 48 U/L (55-170); GLUCOSE 252 mg/dL (75-110); POTASSIUM 4.1 mmol/L (3.6-5.0)
[2019-05-15 23:01] LABS: CREATINE KINASE MB 1.55 ng/mL (<4.55)
[2019-05-15 23:34] LABS: TROPONIN I 0.045 ng/mL
[2019-05-16] MEDS ORDERED: ENOXAPARIN SODIUM INJ 120 MG/0.8 ML DISP.SYRIN SUBCUT SCH (02:15)
--- NOTE | 2019-05-16 02:16 | ER Document Report ---
ED Cardiac - General Chief Complaint: Chest Pain > 30 Stated Complaint: CHEST PAIN Time Seen by Provider: 05/16/19 01:57 Primary Care Provider: SALVATORE ANGEL PA [Primary Care Provider] - Follow up as needed Notes: Patient is a 68-year-old male that comes to the emergency department for chief complaint of chest pain. This happened between 9 and 10 PM while patient was sitting in his easy chair. Patient was given 324 mg of aspirin and given 1 sublingual nitroglycerin before arrival by EMS and patient stated that his symptoms completely resolved. He denies any current symptoms. Pain was in the center of his chest but he denies any other symptoms including dizziness, nausea, vomiting, shortness of breath. Patient does have a history of [facility] with 3 different stents, last heart catheterization was 2 years ago in [place] and patient and do not think he had additional stenting at that time. Patient also has a history of insulin-dependent type 2 diabetes, hypertension, and dementia. Patient does have a DNR status. TRAVEL OUTSIDE OF THE [place] IN LAST 30 DAYS: No - Related Data Allergies/Adverse Reactions: buspirone [From BuSpar] Allergy (Severe, Verified 08/10/17 00:49) Anaphylaxis ampicillin Allergy (Verified 08/08/17 17:55) Past Medical History - General Information source: Patient, Relative - Social History Smoking Status: Former Smoker Frequency of alcohol use: None Drug Abuse: None Lives with: Family Family History: Reviewed & Not Pertinent Patient has suicidal ideation: No Patient has homicidal ideation: No - Past Medical History Cardiac Medical History: Reports: Hx Heart Attack, Hx Hypercholesterolemia, Hx Hypertension Endocrine Medical History: Reports: Hx Diabetes Mellitus Type 1, Hx Diabetes Mellitus Type 2 Renal/ Medical History: Denies: Hx Peritoneal Dialysis Past Surgical History: Reports: Hx Cardiac Surgery - quintuple bypass, stent x2 - Immunizations Immunizations up to date: Yes Hx Diphtheria, Pertussis, Tetanus Vaccination: Yes Review of Systems - Review of Systems Constitutional: No symptoms reported EENT: No symptoms reported Cardiovascular: See HPI Respiratory: No symptoms reported Gastrointestinal: No symptoms reported Genitourinary: No symptoms reported Male Genitourinary: No symptoms reported Musculoskeletal: No symptoms reported Skin: No symptoms reported Hematologic/Lymphatic: No symptoms reported Neurological/Psychological: No symptoms reported Physical Exam - Vital signs Vitals: Temp Resp BP Pulse Ox 98.7 F 15 145/96 H 97 05/15/19 22:03 05/15/19 22:03 05/15/19 22:03 05/15/19 22:03 - Notes Notes: GENERAL: Alert, interacts well. No acute distress. HEAD: Normocephalic, atraumatic. EYES: Pupils equal, round, and reactive to light. Extraocular movements intact. ENT: Oral mucosa moist, tongue midline. Oropharynx unremarkable. Airway patent. LUNGS: Clear to auscultation bilaterally, no wheezes, rales, or rhonchi. No respiratory distress. HEART: Regular rate and rhythm. No murmur ABDOMEN: Soft, non-tender. Non-distended. Bowel sounds present in all 4 quadrants. GENITOURINARY: Deferred EXTREMITIES: Normal lower extremities, chronic lower extremity weakness reportedly. No edema, normal radial and dorsalis pedis pulses bilaterally. No cyanosis. BACK: no cervical, thoracic, lumbar midline tenderness. No saddle anesthesia, normal distal neurovascular exam. NEUROLOGICAL: Alert and oriented to place but inconsistently events. Normal speech. Cranial nerves II through XII grossly intact. PSYCH: Normal affect, normal mood. SKIN: Warm, dry, normal turgor. No rashes or lesions noted. Course - Re-evaluation Re-evalutation: EKG does not show any significant change compared to prior. Chest x-ray with report pending but appears unremarkable. Patient with borderline hypertension but no hypotension, tachycardia, fever. He is asymptomatic on my evaluation and denies chest pain. Chest pain resolved after aspirin and nitroglycerin and has not returned. CBC unremarkable, chemistry shows some hyperglycemia without acidosis. Initial troponin indeterminate at 0.045. This will be cycled. 05/16/19 02:24 Repeat troponin is showing NSTEMI now at 0.224. Given Lovenox. I did discuss with patient and in detail. Patient does have DNR status but is asking for everything to be done up to a code situation. 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 Discussed with Dr. Mahan. 05/16/19 02:38 Pending callback from [facility]. 05/16/19 02:[address] Bender, patient has been accepted for transfer, accepting physician is Dr. Dodge. 05/16/19 Patient was reevaluated, no complaints at this time, no significant change from prior. Patient will have a room this morning at [facility] and will be transferring in a couple of hours. - Vital Signs Vital signs: Temp Pulse Resp BP Pulse Ox 98.7 F 16 182/88 H 98 05/15/19 22:03 05/16/19 03:02 05/16/19 03:02 05/16/19 03:02 - Laboratory Result Diagrams: 05/15/19 22:17 05/15/19 22:17 Laboratory results interpreted by me: 05/15/19 22:17 Sodium 133.9 L Glucose 252 H Creatine Kinase 48 L Total Protein 6.0 L Albumin 3.3 L - EKG Interpretation by Me Additional EKG results interpreted by me: EKG shows sinus rhythm at a rate of 94, QTC is slightly prolonged at 501, T wave inversion in lead III but no T wave inversions or ST segment changes in consecutive leads. Normal axis. No significant change compared to prior. Discharge - Discharge Clinical Impression: NSTEMI (non-ST elevated myocardial infarction) Chest pain Qualifiers: Chest pain type: unspecified Qualified Code(s): R07.9 - Chest pain, unspecified Condition: Stable Disposition: [facility] Referrals: SALVATORE ANGEL PA [Primary Care Provider] - Follow up as needed
[2019-05-16] MEDS ORDERED: LORAZEPAM INJ 2 MG/1 ML VIAL IV ONE (02:21)
--- NOTE | 2019-05-16 02:47 | RADIOLOGY REPORT (SQ) ---
EXAM DESCRIPTION: XR CHEST 1 VIEW COMPLETED DATE/TME: 05/16/2019 02:00 CLINICAL HISTORY: 68 years, Male, chest pain COMPARISON: 08/08/2017 chest NUMBER OF VIEWS: 1 TECHNIQUE: Portable chest LIMITATIONS: None. FINDINGS: Cardiomegaly. Postsurgical change of the mediastinum. Mild elevation right hemidiaphragm. Stable blunting left costophrenic angle. Lungs are otherwise clear. No pneumothorax IMPRESSION: Cardiomegaly. Stable blunting left costophrenic angle which may reflect small chronic left effusion and/or pleural thickening. copyright 2010 [employer]- All Rights Reserved
[2019-05-16 07:23] VITALS: BP 153/84
--- NOTE | 2019-05-16 09:11 | EKG REPORT ---
SEVERITY:- ABNORMAL ECG - SINUS RHYTHM PROBABLE LEFT ATRIAL ABNORMALITY INFERIOR INFARCT, AGE INDETERMINATE PROLONGED QT INTERVAL : Confirmed by: Yumiko Calderón 16-May-2019 09:09:48
--- NOTE | 2019-05-17 10:46 | EKG REPORT ---
SEVERITY:- ABNORMAL ECG - SINUS RHYTHM PROBABLE LEFT ATRIAL ABNORMALITY NONSPECIFIC INTRAVENTRICULAR CONDUCTION DELAY INFERIOR INFARCT, AGE INDETERMINATE : Confirmed by: Yumiko Calderón 17-May-2019 10:44:29
== END 2019-05-16 08:02 | disposition short-term general hospital (02) ==
LOC: ER 21:51
DX: I21.4 Non-ST elevation (NSTEMI) myocardial infarction (principal); R07.9 Chest pain, unspecified; I10 Essential (primary) hypertension; E11.65 Type 2 diabetes mellitus with hyperglycemia; I25.2 Old myocardial infarction; Z66 Do not resuscitate; Z95.5 Presence of coronary angioplasty implant and graft; Z95.1 Presence of aortocoronary bypass graft; Z87.891 Personal history of nicotine dependence; Z87.892 Personal history of anaphylaxis; Z88.8 Allergy status to other drugs, medicaments and biological substances; Z88.0 Allergy status to penicillin
CPT/HCPCS: 93005; 36415; 82553; 82550; 85025; 80053; 84484; 71045; 93010; J1650